=== PATIENT | male | born 1990 | race Caucasian/White ===

== ENCOUNTER 2021-08-22 17:20 | Emergency (ER) | payer OTHER ==
[~2021-08-22] VITALS: Ht 172.7 cm; Wt 74.8 kg
[2021-08-22 18:39] LABS: HEMOGLOBIN 14.9 gm/dL (14.0-18.0); MCH 29.9 pg (26.0-34.0); MCHC 33.1 g/dL (28.0-37.0); MCV 90.1 fL (80.0-100.0); RBC 4.99 mil/uL (4.50-6.00); RDW 12.8 % (10.5-14.5); WBC 9.6 thou/uL (4.0-11.0)
[2021-08-22 18:47] LABS: CALCIUM 9.1 mg/dL (8.5-10.1); POTASSIUM 3.6 mmol/L (3.5-5.1)
[2021-08-22 18:57] LABS: ALBUMIN 3.9 g/dL (3.4-5.0); TOTAL BILIRUBIN 0.4 mg/dL (0.2-1.0); TOTAL PROTEIN 7.6 g/dL (6.4-8.2)
[2021-08-22] MEDS ORDERED: MEDROLDOSEPACK PO (19:09)
[2021-08-22 19:53] VITALS: BP 153/96
--- NOTE | 2021-08-23 08:00 | EKG ---
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1990 Requested By: Antonia Armstrong Order Number: [id number] MD: Sang Diaz Measurements Intervals [place] Rate: 73 P: 9 DE: 164 QRS: 27 QRSD: 100 T: -9 QT: 362 QTc: 399 Interpretive Statements Sinus rhythm RSR' in V1 or V2, right VCD or RVH Borderline T abnormalities, inferior leads No previous ECG available for comparison Electronically Signed On 08-23-2021 8:00:33 [employer] by Sang Diaz [email or web address] <ELECTRONICALLY SIGNED> By: Sang Diaz MD, [facility] 08/23/21 0800 1726 1726 Sang Diaz MD, FACC /EPI
== END 2021-08-22 19:53 | disposition home or self-care (01) ==
LOC: ER 17:20
PROVIDERS: Nurse Practitioner Family
DX: M94.0 Chondrocostal junction syndrome [Tietze] (principal); R07.89 Other chest pain

== ENCOUNTER 2021-09-17 07:16 | Emergency (ER) | payer OTHER ==
[~2021-09-17] VITALS: Ht 175.3 cm; Wt 99.8 kg
[~2021-09-17 07:16] MED LIST: MEDROLDOSEPACK PO
[2021-09-17 08:10] LABS: ABSOLUTE NEUTROPHILS 5.8 thou/uL (1.4-8.2); BASOPHILS 0.6 % (0.0-2.0); EOSINOPHILS 4.2 % (0.0-3.0); HEMOGLOBIN 15.3 gm/dL (14.0-18.0); LYMPHOCYTES 22.3 % (24.0-44.0); MCH 30.5 pg (26.0-34.0); MCV 89.7 fL (80.0-100.0); MONOCYTES 6.1 % (1.0-8.0); PLATELET COUNT 362 thou/uL (150-400); POLYS 66.8 % (36.0-66.0); RBC 5.02 mil/uL (4.50-6.00); RDW 12.6 % (10.5-14.5); WBC 8.6 thou/uL (4.0-11.0)
[2021-09-17 08:16] LABS: CALCIUM 8.9 mg/dL (8.5-10.1); CREATININE 0.9 mg/dL (0.7-1.3); POTASSIUM 4.1 mmol/L (3.5-5.1)
[2021-09-17 08:26] LABS: ALBUMIN 3.9 g/dL (3.4-5.0); TOTAL BILIRUBIN 0.9 mg/dL (0.2-1.0); TOTAL PROTEIN 7.6 g/dL (6.4-8.2)
[2021-09-17] MEDS ORDERED: IBUPROFEN 800800 MG PO (09:30)
[2021-09-17] MEDS ORDERED: CYCLOBENZAPRINE5 MG PO (09:30)
[2021-09-17 10:07] VITALS: BP 137/92
--- NOTE | 2021-09-17 12:06 | EKG ---
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1990 Requested By: Willie Quiñonez Order Number: [id number] MD: Naveed Webb Measurements Intervals [place] Rate: 60 P: 3 NV: 158 QRS: 27 QRSD: 102 T: 2 QT: 392 QTc: 392 Interpretive Statements Sinus rhythm RSR' in V1 or V2, right VCD ST elev, probable normal early repol pattern Compared to ECG 08/22/2021 17:26:50 No significant change was found Electronically Signed On 09-17-2021 12:06:38 [employer]ELOPER by Naveed Webb [email or web address] <ELECTRONICALLY SIGNED> By: Naveed Webb MD, [facility] 09/17/21 1206 9 9 Naveed Webb MD, [facility] /EPI
== END 2021-09-17 10:08 | disposition home or self-care (01) ==
LOC: ER 07:16
PROVIDERS: Emergency Medicine
DX: R07.89 Other chest pain (principal); M54.12 Radiculopathy, cervical region; Z79.899 Other long term (current) drug therapy